=== PATIENT | male | born 1940 | race Caucasian/White ===

== ENCOUNTER 2016-09-19 11:15 | Outpatient (CLI) | payer MEDICARE ==
[2016-09-19 11:43] LABS: BASOPHILS # (AUTO) 0.1 /CMM (0.0-0.2); BASOPHILS % (AUTO) 0.8 % (0.0-2.0); EOSINOPHILS # (AUTO) 0.1 /CMM (0.0-0.7); EOSINOPHILS % (AUTO) 0.8 % (0.0-6.0); HEMATOCRIT 47 % (39-51); HEMOGLOBIN 15.6 g/dL (13.5-17.5); LYMPHOCYTES # (AUTO) 1.1 /CMM (0.8-4.8); MEAN CORPUSCULAR HEMOGLOBIN 34 PG (26.0-33.0); MEAN CORPUSCULAR HGB CONC 33 g/dl (31.0-36.0); MEAN CORPUSCULAR VOLUME 101 fL (80-96); MONOCYTES # (AUTO) 0.5 /CMM (0.1-1.30); MONOCYTES % (AUTO) 7.4 % (2.0-12.0); NEUTROPHILS # (AUTO) 5.3 /CMM (1.8-8.9); PLATELET COUNT (AUTO) 188 /CMM (150-450); RDW COEFFICIENT OF VARIATION 13.9 (11.5-15.0); RED BLOOD CELL COUNT(AUTO) 4.66 MIL/uL (4.5-6.0); WHITE BLOOD COUNT (AUTO) 7.1 K/uL (4.3-11.0)
[2016-09-19 11:44] LABS: APPEARANCE,URINE CLEAR (CLEAR); BILIRUBIN,URINE NEGATIVE (NEGATIVE); BLOOD, URINE NEGATIVE Ery/uL (NEGATIVE); COLOR,URINE YELLOW (YELLOW); KETONES,URINE NEGATIVE (NEGATIVE); LEUKOCYTE ESTERASE ,URINE NEGATIVE (NEGATIVE); NITRITE, URINE NEGATIVE (NEGATIVE); PROTEIN,URINE NEGATIVE (NEGATIVE); UGLUCOSE NEGATIVE (NEGATIVE); UROBILINOGEN,URINE 0.2 EU/dL (0.2)
[2016-09-19 11:55] LABS: URIC ACID 6.3 mg/dL (2.6-7.2)
[2016-09-19 11:58] LABS: ALANINE AMINOTRANSFERASE 50 U/L (12-78); ALBUMIN 3.7 g/dL (3.4-5.0); ALKALINE PHOSPHATASE 50 U/L (46-116); ASPARTATE AMINOTRANSFERASE 26 U/L (15-37); CALCIUM, SERUM 9.1 mg/dL (8.5-10.1); CARBON DIOXIDE 30 mmol/L (21-32); CHLORIDE 109 mmol/L (98-107); CREATININE 1.1 mg/dL (0.6-1.3); GLUCOSE 115 mg/dL (74-106); POTASSIUM 3.9 mmol/L (3.5-5.1); SODIUM SERUM 144 mmol/L (136-145); UREA NITROGEN, BLOOD 19 mg/dL (7-18)
== END 2016-09-19 23:59 | disposition home or self-care (01) ==
LOC: LAB 11:15
PROVIDERS: ATTEND Podiatrist
DX: M10.9 Gout, unspecified (principal)
CPT/HCPCS: 36415; 80053-TC; 81000-TC; 84550-TC; 85025-TC

== ENCOUNTER 2020-03-23 16:00 | Emergency (ER) | payer MEDICARE ==
[~2020-03-23] VITALS: Ht 172.7 cm; Wt 79.4 kg
[2020-03-23] MEDS ORDERED: IV NS 0.9% 1,000 ML BAG IV ONE (16:30)
[2020-03-23 18:03] LABS: CALCIUM, SERUM 8.4 mg/dL (8.5-10.1); CARBON DIOXIDE 27 mmol/L (21-32); CHLORIDE 108 mmol/L (98-107); CREATININE 1.1 mg/dL (0.6-1.3); GLUCOSE 73 mg/dL (74-106); POTASSIUM 3.7 mmol/L (3.5-5.1); SODIUM SERUM 145 mmol/L (136-145); UREA NITROGEN, BLOOD 17 mg/dL (7-18)
[2020-03-23 18:12] LABS: HEMATOCRIT 45 % (39-51); HEMOGLOBIN 15.3 g/dL (13.5-17.5); MEAN CORPUSCULAR HGB CONC 34 g/dl (31.0-36.0); MEAN CORPUSCULAR VOLUME 104 fL (80-96); PLATELET COUNT (AUTO) 209 /CMM (150-450); RED BLOOD CELL COUNT(AUTO) 4.32 MIL/uL (4.5-6.0); WHITE BLOOD COUNT (AUTO) 5.7 K/uL (4.3-11.0)
--- NOTE | 2020-03-23 19:40 | NUR ---
pt refused to have the fluids. pt wanted to leave already. Pt was discharged from the paramedics care.
[2020-03-23 19:42] VITALS: BP 144/60
[2020-03-23 22:35] LABS: EOSINOPHILS % (MANUAL) 3 % (0-4); LYMPHOCYTES % (MANUAL) 10 % (16-48); MONOCYTES % (MANUAL) 11 % (0-11.0); NEUTROPHILS % (MANUAL) 76 (42-76)
== END 2020-03-23 18:50 | disposition home or self-care (01) ==
LOC: ER 16:04
DX: R55 Syncope and collapse (principal); Z72.89 Other problems related to lifestyle; I10 Essential (primary) hypertension; F03.90 Unspecified dementia, unspecified severity, without behavioral disturbance, psychotic disturbance, mood disturbance, and anxiety
CPT/HCPCS: 36415; 80048-TC; 84484-TC; 85025-TC

== ENCOUNTER 2021-02-07 10:29 | Inpatient (IN) | payer MEDICARE ==
[~2021-02-07] VITALS: Ht 157.5 cm; Wt 66.3 kg
[2021-02-07 11:25] LABS: BASOPHILS % (AUTO) 0.6 % (0.0-2.0); HEMATOCRIT 44 % (39-51); HEMOGLOBIN 14.9 g/dL (13.5-17.5); LYMPHOCYTES # (AUTO) 0.9 K/uL (0.8-4.8); LYMPHOCYTES % (AUTO) 15.2 % (20.0-44.0); MEAN CORPUSCULAR HGB CONC 34 g/dl (31.0-36.0); MEAN CORPUSCULAR VOLUME 103 fL (80-96); MONOCYTES # (AUTO) 0.4 K/uL (0.1-1.30); MONOCYTES % (AUTO) 7.2 % (2.0-12.0); NEUTROPHILS # (AUTO) 4.3 K/uL (1.8-8.9); PLATELET COUNT (AUTO) 205 K/uL (150-450); RED BLOOD CELL COUNT(AUTO) 4.23 MIL/uL (4.5-6.0); WHITE BLOOD COUNT (AUTO) 5.8 K/uL (4.3-11.0)
[2021-02-07] MEDS ORDERED: IV NS 0.9% 500 ML BAG IV ONE (11:30)
--- NOTE | 2021-02-07 12:30 | NUR ---
RAC 20 S/L; PATENT AND INTACT
[2021-02-07 12:51] LABS: THYROID STIMULATING HORMONE 32.331 uIU/mL (0.358-3.74)
--- NOTE | 2021-02-07 13:10 | NUR ---
BP 218/108 ; GUERA [place]IS AT BEDSIDE
[2021-02-07] MEDS ORDERED: LEVO75TA7 PO (13:13)
[2021-02-07] MEDS ORDERED: QUET25TA PO ×2 (13:13)
[2021-02-07] MEDS ORDERED: OLME40TA18 PO (13:13)
--- NOTE | 2021-02-07 13:20 | NUR ---
MOVE SHEET SUBMITTED AND CALLED FOR TELE BED.
--- NOTE | 2021-02-07 13:25 | NUR ---
COVID SWAB DONE AND SENT TO THE LAB
[2021-02-07] MEDS ORDERED: ASPIRIN 81 MG TAB.CHEW ONE (13:26)
[2021-02-07] MEDS ORDERED: hydrALAZINE HCL IV 20 MG VIAL ONE ×2 (13:26→15:11)
[2021-02-07] MEDS ORDERED: hydrALAZINE HCL IV 20 MG VIAL IV ONE (13:30)
[2021-02-07] MEDS ORDERED: ASPIRIN EC 81 MG TABLET.DR PO ONE (13:30)
[2021-02-07 13:32] LABS: SERUM AMMONIA < 10 umol/L (11-32)
[2021-02-07] MEDS ORDERED: MAG HYDROX/AL HYDROX/SIMETH 30 ML UDC PO PRN (14:00)
[2021-02-07] MEDS ORDERED: hydrALAZINE HCL IV 20 MG VIAL IV PRN (14:00)
[2021-02-07] MEDS ORDERED: Z GUARD REMEDY 2 OZ OINT TP PRN (14:00)
[2021-02-07] MEDS ORDERED: QUETIAPINE FUMARATE 25 MG TABLET PO PRN (14:00)
[2021-02-07] MEDS ORDERED: ONDANSETRON HCL/PF 4 MG/2 ML VIAL IVP PRN (14:00)
[2021-02-07] MEDS ORDERED: MAGNESIUM HYDROXIDE 30 ML UDC PO PRN (14:00)
[2021-02-07] MEDS ORDERED: QUETIAPINE FUMARATE 25 MG TABLET ONE (14:59)
--- NOTE | 2021-02-07 15:19 | NUR ---
ADMINISTERED HYDRALAZINE 20MG PRN ORDERED. BP 185/102 HR 72. PT AAOX3. DENIES PAIN. WILL CONTINUE TO REASSESS BP IN 30 MINUTES
--- NOTE | 2021-02-07 15:57 | NUR ---
REPORT GIVEN TO RENZO FRAZIER
[2021-02-07 16:00] VITALS: BP 105/67
--- NOTE | 2021-02-07 16:00 | NUR ---
ELECTRICAL JOURNEYMANVMWARE SYSTEMS ADMINISTRATOR NOTE PT TRANSPORTED VIA GURNEY TO UNIT AT THIS TIME. PT ADMITTED TO [facility] FROM ER UNDER DR MONIQUE FOR ADMITTING DX OF SYNCOPE. A/O X3 WITH PERIODS OF CONFUSION. PT ON ROOM AIR TOLERATING WELL. PT ON EXTERNAL CLINICAL EDUCATION COORDINATOR READING SR 89. NO SOB OR S/S OF RESPIRATORY DISTRESS NOTED. PT DENIES PAIN OR DISCOMFORT AT THIS TIME. SKIN IS INTACT. IV ACCESS IN RAC #20, INTACT AND PATENT. PT ORIENTED TO STAFF, ROOM, AND UNIT. SAFETY PRECAUTIONS MAINTAINED. BED IN LOWEST LOCKED POSITION, HOB ELEVATED, SIDE RAILS UP X2. CALL LIGHT AND TABLE WITHIN REACH. WILL CONTINUE TO MONITOR.
--- NOTE | 2021-02-07 17:30 | NUR ---
[facility] SWAB DONE AND PLACED IN REFRIGERATOR FOR LAB PICK-UP.
[2021-02-07] MEDS: QUETIAPINE FUMARATE 25 MG TABLET PO SCH (17:33)
[2021-02-07 18:32] LABS: CALCIUM, SERUM 8.8 mg/dL (8.5-10.1); CARBON DIOXIDE 28 mmol/L (21-32); CHLORIDE 107 mmol/L (98-107); CREATININE 1.4 mg/dL (0.6-1.3); GLUCOSE 114 mg/dL (74-106); POTASSIUM 3.9 mmol/L (3.5-5.1); SODIUM SERUM 144 mmol/L (136-145); UREA NITROGEN, BLOOD 22 mg/dL (7-18)
--- NOTE | 2021-02-07 18:44 | NUR ---
CLINIC MANAGER CLOSING NOTE PT IS AWAKE IN BED. A/O X3 WITH PERIODS OF CONFUSION. PT ON ROOM AIR TOLERATING WELL. PT ON EXTERNAL DATA INPUT CLERK READING SR 89. NO SOB OR S/S OF RESPIRATORY DISTRESS NOTED. PT DENIES PAIN OR DISCOMFORT AT THIS TIME. IV ACCESS IN RAC #20, INTACT AND PATENT. PT WITH 1:1 SITTER FOR SAFETY. ALL NEEDS HAVE BEEN MET. SAFETY PRECAUTIONS MAINTAINED AT ALL TIMES. BED IN LOWEST LOCKED POSITION, HOB ELEVATED, SIDE RAILS UP X2. CALL LIGHT AND TABLE WITHIN REACH. WILL ENDORSE TO ONCOMING NURSE FOR ELIO.
--- NOTE | 2021-02-07 19:40 | NUR ---
supervisor cell operation opening notes Received Pt from morning nurse. Pt is laying in bed with a sitter at the bedside. Pt is alert and orientedX2 with period of confusion. Pt keep calling his . Reality orientation provided. Respiration is normal in room air. No SOB. No S/S of distress noted. Tele monitor showed SR hr at 90. IV site at RAC# 20 is clean, intact, flushes easily and SL. Safety precautions is maintained. Bed at low position, brakes locked, side rails upX3, bed alarm is on, hob elevated and call light is within reach. Will continue to monitor.
[2021-02-07 20:00] VITALS: BP 157/97
[2021-02-07 20:10] LABS: ALANINE AMINOTRANSFERASE 21 U/L (12-78); ALBUMIN 3.7 g/dL (3.4-5.0); ALKALINE PHOSPHATASE 79 U/L (46-116); ASPARTATE AMINOTRANSFERASE 16 U/L (15-37); BILIRUBIN,DIRECT 0.1 mg/dL (0.0-0.2); BILIRUBIN,TOTAL 0.4 mg/dL (0.2-1.0)
--- NOTE | 2021-02-07 21:30 | NUR ---
RN notes Pt's named Ebonie cami. Informed Pt's that Pt is sleeping comfortably with a sitter at the bed side. VS is stable and afebrile. Pt's appreciate the info. Will continue to monitor.
[2021-02-08] VITALS (8 sets, daily range): BP systolic 115–156; BP diastolic 57–99
--- NOTE | 2021-02-08 07:00 | NUR ---
outside salesman closing notes Pt is sitting in bed with a sitter at the bedside. Pt is alert and orientedX2 with period of confusion. Respiration is normal in room air. No SOB. No S/S of distress noted. VS is stable. Tele monitor showed SR hr at 69. IV site at RAC# 20 is clean, intact, flushes easily and SL. Safety precautions is maintained. Bed at low position, brakes locked, side rails upX3, bed alarm is on, hob elevated and call light is within reach. Will endorse to am nurse for ELIO.
--- NOTE | 2021-02-08 07:04 | NUR ---
RN notes Pt gets agitated easily and confused. Pt keep refusing to get blood drawn. Explained risks and benefits. Dr. Muro at the bedside. MD is aware and informed.
--- NOTE | 2021-02-08 07:30 | NUR ---
CARPET INSPECTOR FINISHED OPENING NOTE RECEIVED PT AWAKE IN BED. A/O X2 WITH PERIODS OF CONFUSION. PT IS STABLE ON ROOM AIR WITH NO SOB OR S/S OF RESPIRATORY DISTRESS NOTED. PT ON EXTERNAL PIPE CAULKER READING SR AT 71 BPM. PT HAS NO C/O PAIN OR DISCOMFORT AT THIS TIME. IV ACCESS IN RAC #20, INTACT AND PATENT. PT WITH 1:1 SITTER FOR SAFETY. SAFETY PRECAUTIONS MAINTAINED. BED IN LOWEST LOCKED POSITION, HOB ELEVATED, SIDE RAILS UP X3. BED ALARM ON. CALL LIGHT AND TABLE WITHIN REACH. WILL CONTINUE TO MONITOR.
[2021-02-08] MEDS: LEVOTHYROXINE SODIUM 75 MCG TABLET PO SCH (08:19)
[2021-02-08] MEDS: ATORVASTATIN 10 MG TABLET PO SCH (08:51)
[2021-02-08] MEDS: ASPIRIN 81 MG TAB.CHEW PO SCH (08:51)
[2021-02-08] MEDS ORDERED: LOSARTAN POTASSIUM 50 MG TABLET PO SCH (09:00)
[2021-02-08] MEDS: CARVEDILOL 6.25 MG TABLET PO SCH ×2 (09:27→21:08)
[2021-02-08] MEDS: VALSARTAN 80 MG TABLET PO SCH (09:27)
[2021-02-08] MEDS: QUETIAPINE FUMARATE 25 MG TABLET PO SCH (17:35)
--- NOTE | 2021-02-08 18:00 | NUR ---
RECEIVED PT'S HOME MEDS FROM PT'S AND DROPPED OFF AT PHARMACY.
[2021-02-08] MEDS: ACETAMINOPHEN 325 MG TABLET PO PRN (18:28)
--- NOTE | 2021-02-08 18:58 | NUR ---
FIELD RADIO TECHNICIAN CLOSING NOTE PT IS AWAKE IN BED. A/O X2 WITH PERIODS OF CONFUSION. PT IS STABLE ON ROOM AIR WITH NO SOB OR S/S OF RESPIRATORY DISTRESS NOTED. PT ON EXTERNAL BRAND MGR READING SR AT 74 BPM. PT HAS NO C/O PAIN OR DISCOMFORT AT THIS TIME. IV ACCESS IN RAC #20, INTACT AND PATENT. PT WITH 1:1 SITTER FOR SAFETY. ALL NEEDS HAVE BEEN MET. SAFETY PRECAUTIONS MAINTAINED AT ALL TIMES. BED IN LOWEST LOCKED POSITION, HOB ELEVATED, SIDE RAILS UP X3. BED ALARM ON. CALL LIGHT AND TABLE WITHIN REACH. WILL ENDORSE TO ONCOMING NURSE FOR ELIO.
--- NOTE | 2021-02-08 19:20 | NUR ---
TELE/RN OPENING NOTE RECEIVED PT AWAKE, A/OX2, VERBAL, CONFUSED. REORIENTATION PROVIDED. RESPIRATIONS EVEN/UNLABORED, ON ROOM AIR, SPO2 97%. NO S/S OF PAIN NOTED. IV SITE: R-AC G20 INTACT/PATENT/FLUSHES WELL. 1:1 SITTER AT BEDSIDE FOR SAFETY. TELE MONITOR READING SR, HR 62. PT IN NO ACUTE DISTRESS. SAFETY MEASURES IN PLACE, BED IN LOWEST LOCKED POSITION, S/R UPX2, CALL LIGHT WITHIN REACH. WILL CONT TO MONITOR
[2021-02-08 20:37] LABS: BASOPHILS % (AUTO) 0.2 % (0.0-2.0); EOSINOPHILS % (AUTO) 1.3 % (0.0-6.0); HEMATOCRIT 46 % (39-51); HEMOGLOBIN 15.9 g/dL (13.5-17.5); LYMPHOCYTES # (AUTO) 0.6 K/uL (0.8-4.8); LYMPHOCYTES % (AUTO) 6.9 % (20.0-44.0); MEAN CORPUSCULAR HGB CONC 34 g/dl (31.0-36.0); MEAN CORPUSCULAR VOLUME 102 fL (80-96); MONOCYTES # (AUTO) 0.6 K/uL (0.1-1.30); NEUTROPHILS # (AUTO) 7.1 K/uL (1.8-8.9); NEUTROPHILS % (AUTO) 84.6 % (43.0-81.0); PLATELET COUNT (AUTO) 224 K/uL (150-450); RED BLOOD CELL COUNT(AUTO) 4.55 MIL/uL (4.5-6.0); WHITE BLOOD COUNT (AUTO) 8.4 K/uL (4.3-11.0)
[2021-02-08 20:55] LABS: ALBUMIN 3.6 g/dL (3.4-5.0); BILIRUBIN,TOTAL 0.9 mg/dL (0.2-1.0); CALCIUM, SERUM 8.8 mg/dL (8.5-10.1); CREATININE 1.3 mg/dL (0.6-1.3); PHOSPHORUS 2.8 mg/dL (2.5-4.9); POTASSIUM 3.9 mmol/L (3.5-5.1); TOTAL PROTEIN, SERUM 7.1 g/dL (6.4-8.2)
[2021-02-08 21:01] LABS: THYROID STIMULATING HORMONE 30.091 uIU/mL (0.358-3.74)
[2021-02-08 23:57] LABS: EOSINOPHILS % (MANUAL) 2 % (0-4); LYMPHOCYTES % (MANUAL) 10 % (16-48); MONOCYTES % (MANUAL) 7 % (0-11.0); NEUTROPHILS % (MANUAL) 81 (42-76)
[2021-02-09] VITALS: BP 142/79
[2021-02-09 04:00] VITALS: BP 144/82
--- NOTE | 2021-02-09 06:52 | NUR ---
TELE/RN CLOSING NOTE PT AWAKE IN BED, A/OX1. CONFUSED. REORIENTATION PROVIDED. RESPIRATIONS EVEN/UNLABORED. TELE MONITOR READING SR, HR 62. PT IN NO DISTRESS. SAFETY MEASURES MAINTAINED. ALL NEEDS ATTENDED TO.
[2021-02-09 06:57] LABS: BASOPHILS % (AUTO) 0.2 % (0.0-2.0); EOSINOPHILS % (AUTO) 1.1 % (0.0-6.0); HEMATOCRIT 44 % (39-51); HEMOGLOBIN 15.2 g/dL (13.5-17.5); LYMPHOCYTES # (AUTO) 0.7 K/uL (0.8-4.8); LYMPHOCYTES % (AUTO) 7.7 % (20.0-44.0); MEAN CORPUSCULAR HGB CONC 34 g/dl (31.0-36.0); MEAN CORPUSCULAR VOLUME 104 fL (80-96); MONOCYTES # (AUTO) 0.6 K/uL (0.1-1.30); MONOCYTES % (AUTO) 6.6 % (2.0-12.0); NEUTROPHILS # (AUTO) 7.5 K/uL (1.8-8.9); NEUTROPHILS % (AUTO) 84.4 % (43.0-81.0); PLATELET COUNT (AUTO) 211 K/uL (150-450); RED BLOOD CELL COUNT(AUTO) 4.29 MIL/uL (4.5-6.0); WHITE BLOOD COUNT (AUTO) 8.9 K/uL (4.3-11.0)
--- NOTE | 2021-02-09 07:30 | NUR ---
TELE/RN OPENING NOTE RECEIVED PT RESTING ON BED, A/OX2, VERBAL, CONFUSED. RESPIRATIONS EVEN/UNLABORED, ON ROOM AIR, SPO2 98%. NO S/S OF PAIN NOTED. WITH IV ACCESS AT R-AC G20 INTACT/PATENT/FLUSHES WELL. 1:1 SITTER AT BEDSIDE FOR SAFETY. TELE MONITOR READING SR, HR 66. PT IN NO ACUTE DISTRESS. SAFETY MEASURES IN PLACE, BED IN LOWEST LOCKED POSITION, SIDERAILS UP X2, CALL LIGHT WITHIN REACH. WILL CONTINUE TO MONITOR
[2021-02-09 07:40] LABS: ALANINE AMINOTRANSFERASE 20 U/L (12-78); ALBUMIN 3.4 g/dL (3.4-5.0); ALKALINE PHOSPHATASE 89 U/L (46-116); ASPARTATE AMINOTRANSFERASE 20 U/L (15-37); CALCIUM, SERUM 8.6 mg/dL (8.5-10.1); CARBON DIOXIDE 24 mmol/L (21-32); CHLORIDE 107 mmol/L (98-107); CREATININE 1.1 mg/dL (0.6-1.3); GLUCOSE 96 mg/dL (74-106); MAGNESIUM 2.2 mg/dL (1.8-2.4); PHOSPHORUS 3.3 mg/dL (2.5-4.9); POTASSIUM 3.7 mmol/L (3.5-5.1); SODIUM SERUM 141 mmol/L (136-145); TOTAL PROTEIN, SERUM 6.8 g/dL (6.4-8.2); UREA NITROGEN, BLOOD 24 mg/dL (7-18)
[2021-02-09 08:00] VITALS: BP 141/85
--- NOTE | 2021-02-09 08:30 | NUR ---
[facility] RN NOTES PATIENT WITH DIFFICULTY TO MOVE RIGHT ARMS AND SHOWED SIGNS OF PAIN WITH FACIAL GRIMACING.
[2021-02-09] MEDS: ATORVASTATIN 10 MG TABLET PO SCH (09:09)
[2021-02-09] MEDS: CARVEDILOL 6.25 MG TABLET PO SCH ×2 (09:09→20:58)
[2021-02-09] MEDS: LEVOTHYROXINE SODIUM 75 MCG TABLET PO SCH (09:09)
[2021-02-09] MEDS: VALSARTAN 80 MG TABLET PO SCH (09:10)
[2021-02-09] MEDS: ASPIRIN 81 MG TAB.CHEW PO SCH (09:10)
--- NOTE | 2021-02-09 09:40 | NUR ---
RN NOTES PATIENT WENT TO THE BATHROOM ASSISTED BY RYLIE CASTANEDA. PATIENT HAD ORTHOSTATIC HYPOTENSION AT 81/45MMHG BLOOD PRESSURE. ASSISTED PATIENT BACK TO BED ON FLAT POSITION. PATIENT'S VITAL SIGNS RECHECKED: BP-139/82, RI-71, RR-24 AND SPO2-97%. PATIENT WHEN HELD AT RIGHT ARM, HE SHOWED SIGNS OF PAIN AND UNABLE TO BEAR MOVING UP THE ARM. WILL CONTINUE TO MONITOR.
[2021-02-09 09:45] VITALS: BP 81/45
[2021-02-09 16:00] VITALS: BP 143/73
[2021-02-09] MEDS: QUETIAPINE FUMARATE 25 MG TABLET PO SCH (17:26)
--- NOTE | 2021-02-09 18:44 | NUR ---
SUPERVISOR VACUUM METALIZING CLOSING NOTES PT SITTING ON CHAIR AND A/OX2, VERBAL, CONFUSED. RESPIRATIONS EVEN/UNLABORED, ON ROOM AIR, SPO2 97%. NO S/S OF PAIN NOTED. WITH IV ACCESS AT R-AC G20 INTACT/PATENT/FLUSHES WELL. 1:1 SITTER AT BEDSIDE FOR SAFETY. TELE MONITOR READING SR, HR 82. SAFETY MEASURES IN PLACE, BED IN LOWEST LOCKED POSITION, SIDERAILS UP X2, CALL LIGHT WITHIN REACH. WILL ENDORSE TO NEXT SHIFT FOR ELIO.
--- NOTE | 2021-02-09 19:20 | NUR ---
TELE/RN OPENING NOTE RECEIVED PT AWAKE, A/OX2, VERBAL WITH CONFUSION. REORIENTATION PROVIDED. RESPIRATIONS EVEN/UNLABORED, ON ROOM AIR, SPO2 99%. IV SITE: R-AC G20 INTACT/PATENT/FLUSHES WELL. 1:1 SITTER AT BEDSIDE FOR SAFETY. TELE MONITOR READING SR, HR 74. PT IN NO ACUTE DISTRESS. SAFETY MEASURES IN PLACE, BED IN LOWEST LOCKED POSITION, S/R UPX2, CALL LIGHT WITHIN REACH. WILL CONT TO MONITOR
[2021-02-09 20:00] VITALS: BP 153/95
[2021-02-10] VITALS: BP 145/94
[2021-02-10 04:00] VITALS: BP 139/86
--- NOTE | 2021-02-10 06:54 | NUR ---
TELE/RN CLOSING NOTE PT RESTING IN BED, EASILY AROUSABLE TO STIMULI. A/OX1. CONFUSED. REORIENTATION PROVIDED. RESPIRATIONS EVEN/UNLABORED. NO SOB. TELE MONITOR READING SB, HR 57. PT IN NO DISTRESS. SAFETY MEASURES MAINTAINED. ALL NEEDS ATTENDED TO.
--- NOTE | 2021-02-10 07:30 | NUR ---
HEDDLER OPENING NOTE RECEIVED PATIENT IN BED AWAKE, ALERT AND ORIENTED X2. CONFUSED REORIENT THE PATIENT. RESPIRATIONS EVEN/UNLABORED, ON ROOM AIR, SPO2 97%. IV SITE ON THE RIGHT UPPER AC G=20 INTACT AND PATENT. NO SWELLING NO REDNESS NOTED. 1:1 SITTER AT BEDSIDE FOR SAFETY. TELE SR = 57. NO PAIN NOTED. BED IN LOWEST LOCKED POSITION, SIDE RAILS UPX2, CALL LIGHT AND TABLE WITHIN REACH. WILL CONTINUE TO MONITOR
[2021-02-10] MEDS: LEVOTHYROXINE SODIUM 75 MCG TABLET PO SCH (07:36)
[2021-02-10 08:00] VITALS: BP 115/76
[2021-02-10] MEDS: ASPIRIN 81 MG TAB.CHEW PO SCH (08:12)
[2021-02-10] MEDS: VALSARTAN 80 MG TABLET PO SCH (08:12)
[2021-02-10] MEDS: ATORVASTATIN 10 MG TABLET PO SCH (08:13)
[2021-02-10 08:14] VITALS: BP 115/76
[2021-02-10] MEDS: CARVEDILOL 6.25 MG TABLET PO SCH (08:14)
[2021-02-10] MEDS: ACETAMINOPHEN 325 MG TABLET PO PRN (13:29)
--- NOTE | 2021-02-10 13:34 | NUR ---
RN NOTES PATIENT IS COMPLAINING OF PAIN ON HIS LEFT KNEE. PREPARED TYLENOL ORDERED BUT PATIENT REFUSED AND SPIT MEDICATION.
--- NOTE | 2021-02-10 15:19 | NUR ---
RN NOTES CLARIFIED WITH DR. MONIQUE IF PATIENT IS CLEARED FOR DC. ACKNOWLEDGED WITH ORDER MADE AND CARRIED OUT.
--- NOTE | 2021-02-10 16:45 | NUR ---
RN NOTES: DISCHARGE PATIENT WITH GOOD CONDITION. VITAL SIGNS WITHIN NORMAL RANGES.PATIENT AND FILLER SHREDDING MACHINE LOADER OF INSTRUCTIONS VERBALIZED UNDERSTANDING. IV ACCESS REMOVED. COVERED WITH GAUZE .NO BLEEDING NOTED. DISCHARGE ON ROOM AIR, NO DIFFICULTY IN BREATHING NOTED. BELONGINGS ACCOUNTED AND SIGNED FOR. ARM BAND REMOVED , WHEEL THE PATIENT TO LOBBY . PATIENT LEFT THE UNIT IN STABLE CONDITION MD AND CHARGE NURSE AWARE OF THE DISCHARGE.
== END 2021-02-10 16:38 | disposition home or self-care (01) | DRG 73 ==
LOC: ER 10:32 → TELE 15:49 → MED 02-10 08:52
PROVIDERS: ADMIT Internal Medicine; ATTEND Internal Medicine
DX: G90.8 Other disorders of autonomic nervous system (principal); I21.A1 Myocardial infarction type 2; N17.0 Acute kidney failure with tubular necrosis; G93.41 Metabolic encephalopathy; G90.3 Multi-system degeneration of the autonomic nervous system; E78.5 Hyperlipidemia, unspecified; E03.9 Hypothyroidism, unspecified; G30.9 Alzheimer's disease, unspecified; F02.80 Dementia in other diseases classified elsewhere, unspecified severity, without behavioral disturbance, psychotic disturbance, mood disturbance, and anxiety; I10 Essential (primary) hypertension; Z20.822 Contact with and (suspected) exposure to COVID-19; Z79.899 Other long term (current) drug therapy; Z86.59 Personal history of other mental and behavioral disorders; G20 Parkinson's disease
CPT/HCPCS: 36415; 70450-TC; 71045-TC; 73030-TC; 73080-TC; 73090-TC; 80048-TC; 80053-TC; 80061-TC; 80076-TC; 82140-TC; 83735-TC; 84100-TC; 84439-TC; 84443-TC; 84484-TC; 85025-TC; 85730-TC; 87081-TC; 93307-TC; 95819-TC; 97110-TC; 97116-TC; 97530-TC; C9803; G0378; J0360; J7040

== ENCOUNTER 2021-04-26 12:50 | Outpatient (CLI) | payer MEDICARE ==
[~2021-04-26 12:50] MED LIST: LEVO75TA7 PO; OLME40TA18 PO; QUET25TA PO
[2021-04-26] MEDS ORDERED: Z GUARD REMEDY 2 OZ OINT TP ONE (13:16)
[2021-04-26] MEDS ORDERED: COLLAGENASE 5 GM TUBE UD TP ONE (13:22)
== END 2021-04-26 23:59 | disposition home health service (06) ==
LOC: WOU 12:50
PROVIDERS: ATTEND Surgery
DX: L89.153 Pressure ulcer of sacral region, stage 3 (principal); L89.110 Pressure ulcer of right upper back, unstageable; L89.211 Pressure ulcer of right hip, stage 1; M62.50 Muscle wasting and atrophy, not elsewhere classified, unspecified site; F03.90 Unspecified dementia, unspecified severity, without behavioral disturbance, psychotic disturbance, mood disturbance, and anxiety
CPT/HCPCS: 11042